=== PATIENT | male | born 1945 | race Caucasian/White ===

== ENCOUNTER 2017-01-25 09:19 | Observation (INO) ==
[2017-01-25 09:45] LABS: MANUAL DIFF NEEDED? NO
[2017-01-25 09:48] LABS: BASO% 0.4 % (0.0-0.8); EOS# 0.18 X1000 (0.0-0.7); EOS% 2.7 % (0.0-10.0); HEMATOCRIT 30.8 % (42.0-52.0); HEMOGLOBIN 10.2 g/dL (14.0-18.0); IMM GRAN# 0.02 X1000 (0.0-0.04); IMM GRAN% 0.3 % (0.0-0.5); LYMPH# 2.01 X1000 (1.2-3.4); MCH 29.5 PG (27-31); MCHC 33.1 g/dL (33-37); MONO# 0.81 X1000 (0.11-0.59); MONO% 12.1 % (1.7-9.3); MPV 8.1 FL (7.4-10.4); NEUT% 54.5 % (42.2-75.2); PLT 233 X1000 (130-400); RBC 3.46 XMIL (4.7-6.1)
--- NOTE | 2017-01-25 09:58 | EKG Report ---
Test Performed on : 01/25/2017 09:41:34 AM Test Reason : emboli Blood Pressure : / mmHG Vent. Rate : 085 BPM Atrial Rate : 085 BPM P-R Int : 186 ms QRS Dur : 086 ms QT Int : 394 ms P-R-T Axes : 050 071 078 degrees QTc Int : 468 ms Normal sinus rhythm. Normal ECG When compared with ECG of 10-DEC-2016 20:08, No significant change was found Unconfirmed Result
[2017-01-25 10:08] LABS: AGAP 16; ALBUMIN 3.9 g/dL (3.5-5.0); ALKALINE PHOSPHATASE 58 U/L (32-122); BUN 6 mg/dL (8-22); CALCIUM 8.4 mg/dL (8.8-10.2); CHLORIDE 84 mmol/L (98-107); CK PROFILE 140 U/L (24-204); COSMO 241; GOT 16 U/L (10-34); GPT 10 U/L (10-44); POTASSIUM 3.4 mmol/L (3.5-5.1); TCO2 20 mmol/L (25-35); TOTAL PROTEIN 7.1 g/dL (6.3-8.3)
[2017-01-25 10:09] LABS: SODIUM 120 mmol/L (136-145)
[2017-01-25 11:42] LABS: URINE SOURCE VOIDED
[2017-01-25 12:00] LABS: UR AMPHETAMINES QUAL NONE DETECTED (NONE DETECT); UR BARBITUATES QUAL NONE DETECTED (NONE DETECT); UR BENZODIAZEPIN QUAL NONE DETECTED (NONE DETECT); UR CANNABINOIDS QUAL NONE DETECTED (NONE DETECT); UR COCAINE QUAL NONE DETECTED (NONE DETECT); UR MDMA QUAL NONE DETECTED (NONE DETECT); UR METHADONE QUAL NONE DETECTED (NONE DETECT); UR METHAMPHETAMINE QUAL NONE DETECTED (NONE DETECT); UR OPIATES QUAL NONE DETECTED (NONE DETECT); UR OXYCODONE QUAL PRESUMPTIVE POSITIVE (NONE DETECT); UR PCP QUAL NONE DETECTED (NONE DETECT); UR TCA QUAL NONE DETECTED (NONE DETECT)
[2017-01-25 12:06] LABS: BILIRUBIN URINE NEGATIVE (NEGATIVE); BLOOD URINE NEGATIVE (NEGATIVE); CLARITY CLEAR (CLEAR); COLOR YELLOW; GLUCOSE URINE NEGATIVE (NEGATIVE); LEUKOCYTES URINE NEGATIVE (NEGATIVE); NITRITE URINE NEGATIVE (NEGATIVE); PROTEIN URINE NEGATIVE (NEGATIVE); SP GRAVITY URINE 1.005; UROBILINOGEN URINE NORMAL
[2017-01-25] MEDS ORDERED: NS 1,000 ML IV ONE (13:18)
[2017-01-25] MEDS ORDERED: NACL 3% 500 ML IV SCH (15:20)
[2017-01-25] MEDS ORDERED: SAMSCA PO ONE ×2 (15:20→15:58)
[2017-01-25] MEDS ORDERED: ULTRACET 37.5MG/325MG PO PRN (15:24)
[2017-01-25] MEDS ORDERED: CYANOCOBALAMIN IM SCH ×3 (15:30→16:00)
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
[2017-01-25] MEDS ORDERED: NEURONTIN PO SCH (17:00)
[2017-01-25] MEDS ORDERED: GEODON PO SCH ×2 (17:00→18:00)
[2017-01-25] MEDS: NACL 3% 500 ML IV SCH (17:38)
[2017-01-25] MEDS: NEURONTIN PO SCH (17:40)
[2017-01-25] MEDS: GEODON PO SCH (17:40)
[2017-01-25] MEDS ORDERED: POTASSIUM CHLORIDE 40 MEQ/SWI 40 MEQ/100 ML IVPB IV ONE (18:48)
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
[2017-01-25] MEDS: POTASSIUM CHLORIDE 20 MEQ/SWI 20 MEQ/100 ML IVPB IV SCH ×2 (20:44→22:46)
[2017-01-25] MEDS: COLACE PO SCH (20:44)
[2017-01-25] MEDS: DEPAKOTE ER PO SCH (20:45)
[2017-01-25] MEDS ORDERED: COLACE PO SCH (21:00)
[2017-01-25] MEDS ORDERED: DEPAKOTE ER PO SCH (21:00)
[2017-01-25] MEDS: ULTRACET 37.5MG/325MG PO PRN (21:22)
[2017-01-25 22:49] LABS: URINE MICRO REVIEW NEEDED? NO; URINE SOURCE VOIDED
[2017-01-25 23:29] LABS: BILIRUBIN URINE NEGATIVE (NEGATIVE); BLOOD URINE NEGATIVE (NEGATIVE); COLOR YELLOW; GLUCOSE URINE NEGATIVE (NEGATIVE); LEUKOCYTES URINE NEGATIVE (NEGATIVE); NITRITE URINE NEGATIVE (NEGATIVE); PH URINE 6.5; PROTEIN URINE NEGATIVE (NEGATIVE); SP GRAVITY URINE 1.007; TURBIDITY URINE CLEAR (CLEAR); UR EPITHELIAL CELLS <10 /HPF (<10); URINE BACTERIA NEGATIVE /HPF; URINE RBC <10 /HPF (<10); URINE WBC <10 /HPF (<10); UROBILINOGEN URINE NORMAL (NORMAL)
[2017-01-26 06:32] LABS: MANUAL DIFF NEEDED? NO
[2017-01-26 06:42] LABS: BASO% 0.4 % (0.0-0.8); EOS# 0.18 X1000 (0.0-0.7); EOS% 2.7 % (0.0-10.0); HEMATOCRIT 32.1 % (42.0-52.0); HEMOGLOBIN 10.6 g/dL (14.0-18.0); IMM GRAN# 0.03 X1000 (0.0-0.04); IMM GRAN% 0.4 % (0.0-0.5); LYMPH# 1.84 X1000 (1.2-3.4); LYMPH% 27.5 % (20.5-51.1); MCH 30.3 PG (27-31); MCV 91.7 FL (81-99); MONO# 0.81 X1000 (0.11-0.59); MONO% 12.1 % (1.7-9.3); MPV 8.3 FL (7.4-10.4); NEUT% 56.9 % (42.2-75.2); PLT 235 X1000 (130-400)
[2017-01-26] MEDS: PROTONIX PO SCH (06:47)
[2017-01-26 07:14] LABS: FREE T4 1.22 ng/dL (0.93-1.70)
[2017-01-26 07:18] LABS: AGAP 14; BUN 10 mg/dL (8-22); CHLORIDE 93 mmol/L (98-107); COSMO 261; POTASSIUM 4.8 mmol/L (3.5-5.1); SODIUM 130 mmol/L (136-145); TCO2 23 mmol/L (25-35)
[2017-01-26] MEDS: ULTRACET 37.5MG/325MG PO PRN ×3 (07:22→18:51)
[2017-01-26] MEDS: COLACE PO SCH ×2 (08:05→21:58)
[2017-01-26] MEDS: LIPITOR PO SCH (08:05)
[2017-01-26] MEDS: NORVASC PO SCH (08:06)
[2017-01-26] MEDS: FOLIC ACID PO SCH (08:06)
[2017-01-26] MEDS: NEURONTIN PO SCH ×3 (08:06→17:39)
[2017-01-26] MEDS ORDERED: LIPITOR PO SCH (09:00)
[2017-01-26] MEDS ORDERED: PROTONIX PO SCH (09:00)
[2017-01-26] MEDS ORDERED: NORVASC PO SCH (09:00)
[2017-01-26] MEDS ORDERED: FOLIC ACID PO SCH (09:00)
--- NOTE | 2017-01-26 10:27 | PROGRESS NOTE ---
DATE: 01/26/2017 SUBJECTIVE: IV access is problematic and complains of pain. Wants more pain medicine. REVIEW OF SYSTEMS: Improved the mental exam. EXAMINATION: Vitals: Are stable. HEENT: Within normal limits. Neck: Supple. No lymphadenopathy. Chest: Clear. Heart: Sounds are regular. Abdomen: Belly is soft, nontender. Good bowel sounds. Nonfocal. INVESTIGATIONS: CBC: White cell count 6.6, hematocrit 32, platelet count is 235. SMA-7: Sodium 130, potassium 4.8, chloride 93, BUN 14, creatinine 0.7, glucose 125. ProBNP is normal. Chest x- ray stable. Thyroid function tests, cortisol levels were normal. Urine sodium is 22, urine osmolality pending. ASSESSMENT AND PLAN: 1. Altered mental status due to hyponatremia, probably from the syndrome of inappropriate secretion of antidiuretic hormone (SIADH). Continue 3% normal saline and Samsca 1 dose. Repeat SMA-7 in the morning. 2. Chronic pain. Discontinue Percocet. We will use Ultracet #3. We will discuss with the family. 3. Continue present medical therapy. LEVEL OF DOCUMENTATION: 25 minutes. cc: Jonathan Arriola MD
[2017-01-26] MEDS: GEODON PO SCH (17:39)
[2017-01-26] MEDS: DEPAKOTE ER PO SCH (21:58)
[2017-01-27] MEDS: ULTRACET 37.5MG/325MG PO PRN (06:08)
[2017-01-27] MEDS: NACL 3% 500 ML IV SCH ×2 (06:08→08:00)
[2017-01-27] MEDS: PROTONIX PO SCH (06:09)
[2017-01-27 06:28] LABS: MANUAL DIFF NEEDED? NO
[2017-01-27 06:43] LABS: BASO% 0.3 % (0.0-0.8); EOS% 2.8 % (0.0-10.0); HEMATOCRIT 32.6 % (42.0-52.0); HEMOGLOBIN 10.4 g/dL (14.0-18.0); IMM GRAN# 0.06 X1000 (0.0-0.04); IMM GRAN% 0.8 % (0.0-0.5); LYMPH# 2.21 X1000 (1.2-3.4); LYMPH% 31.1 % (20.5-51.1); MCH 29.5 PG (27-31); MCHC 31.9 g/dL (33-37); MCV 92.4 FL (81-99); MONO# 0.98 X1000 (0.11-0.59); MONO% 13.8 % (1.7-9.3); MPV 8.5 FL (7.4-10.4); NEUT% 51.2 % (42.2-75.2); PLT 251 X1000 (130-400); RBC 3.53 XMIL (4.7-6.1)
[2017-01-27 07:06] LABS: AGAP 17; BUN 10 mg/dL (8-22); CALCIUM 8.7 mg/dL (8.8-10.2); CHLORIDE 96 mmol/L (98-107); COSMO 267; POTASSIUM 4.5 mmol/L (3.5-5.1); SODIUM 133 mmol/L (136-145); TCO2 20 mmol/L (25-35)
[2017-01-27 07:39] VITALS: BP 154/72
[2017-01-27] MEDS: NORVASC PO SCH (08:00)
[2017-01-27] MEDS: FOLIC ACID PO SCH (08:00)
[2017-01-27] MEDS: NEURONTIN PO SCH (08:00)
[2017-01-27] MEDS: LIPITOR PO SCH (08:00)
[2017-01-27] MEDS: COLACE PO SCH (08:00)
--- NOTE | 2017-01-28 09:13 | DISCHARGE SUMMARY ---
ADMISSION DATE: 01/25/2017 DISCHARGE DATE: 01/27/2017 DISCHARGING DIAGNOSIS: Acute metabolic encephalopathy due to hyponatremia from syndrome of inappropriate antidiuretic hormone secretion due to Depakote. SECONDARY DIAGNOSES: 1. Abdominal aortic aneurysm with stent. 2. Bipolar disorder. 3. Hyperlipidemia. 4. Chronic osteoarthritis pain. 5. Tobacco abuse. 6. Alcohol dependency. 7. History of subdural hematoma. BRIEF HISTORY: Please see the history and physical that was done on 01/25/2017. In brief, he is a 71-year-old white gentleman who was admitted to the hospital with altered mental status with hyponatremia. Sodium levels 130. HOSPITAL COURSE: As a part of the hyponatremia, the patient has a normal thyroid function test, normal chest x-ray, normal cortisol levels. Urine sodium is 22. Urine osmolality 400. He is euvolemic. Cortisol levels were normal. Patient was given Samsca and also hypertonic saline. Followup sodium level 133. He came back to the baseline. LABORATORIES: At the time of discharge, CBC white cell count 7.1, hematocrit 32, platelets 251,000. Sodium 133, potassium 4.5, chloride 96. BUN 10, creatinine 0.6, glucose 130. ProBNP is normal. Normal cortisol. Normal thyroid function tests. Urine toxic screen is negative, except oxycodone. DISCHARGE INSTRUCTIONS: 1. Amlodipine 5 mg daily. 2. Lipitor 10 daily. 3. Gabapentin 300 p.o. t.i.d. 4. Discontinue OxyContin. 5. Protonix 40 mg b.i.d. 6. Vitamin B12 injections 1 mL every 30 days. 7. Depakote 1750 at bedtime. 8. Colace 100 p.o. b.i.d. 9. Vitamin D 50562 once a week. 10. Folic acid 1 mg daily. 11. Lopressor 50 mg p.o. b.i.d. 12. Geodon 40 mg at bedtime. 13. Ultracet 1 tablet p.o. b.i.d. 14. Sodium chloride 1 g p.o. b.i.d. FOLLOWUP: Followup in my office on 02/04 for checking the SMA 7, as well as follow up with Dr. Denny for chronic osteoarthritic pains. cc: Jonathan Arriola MD
--- NOTE | 2017-02-03 02:25 | ED EKG INTERP ---
This chart was entered by Marcelina Muniz Scribe, acting as scribe for Daniel Hazel MD. EKG Interpretation - EKG Time of EKG reading by physician:: 09:41 EKG Read and Signed by:: Daniel Hazel EKG Interpretation (*Must complete 3 of following elements*): Normal Rate: 85 Rhythm: normal sinus rhythm [place]: normal QRS: normal [place] Interval: normal This chart was documented by the indicated scribe, (Marcelina Muniz Scribe) and accurately reflects the services I performed and decisions made by me, Daniel Hazel MD, as attested by the provider's signature.
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
== END 2017-01-27 12:17 | disposition home or self-care (01) ==
LOC: 3N 09:19 → P.ED 09:19 → 3N 14:20
PROVIDERS: ADMIT Internal Medicine; ATTEND Internal Medicine